=== PATIENT | male | born 2000 | race Caucasian/White ===

== ENCOUNTER 2020-12-05 17:02 | Observation (INO) ==
[2020-12-05 17:49] LABS: Basophils % 0.4 %; Eosinophils # 0.2 K/mcL (0.0-0.6); Eosinophils % 1.7 %; Hematocrit 45.4 % (37.5-50.1); Hemoglobin 15.6 g/dL (12.9-16.9); Immature Granulocytes % 0.3 % (0-4); Lymphocytes # 2.1 K/mcL (0.6-4.6); Lymphocytes % 23.3 %; Mean Corpuscular HGB Conc 34.4 g/dL (31.6-35.5); Mean Corpuscular Hemoglobin 30.6 pg (28.0-33.3); Mean Platelet Volume 10.3 fL (9.4-12.4); Monocytes # 0.7 K/mcL (0.0-1.3); Monocytes % 7.6 %; Platelet Count 306 K/mcL (140-400); Red Cell Distribution Width 12.4 % (11.5-14.5); Segmented Neutrophils % 66.7 %; White Blood Count 9.1 K/mcL (4.3-11.1)
[2020-12-05 18:10] LABS: Alanine Aminotransferase 11 Units/L (7-52); Albumin 4.6 g/dL (3.5-5.7); Albumin/Globulin Ratio 1.8 (1.1-2.2); Alkaline Phosphatase 64 Units/L (34-104); Aspartate Amino Transferase 14 Units/L (13-39); BUN/Creatinine Ratio 12 (6-26); Bilirubin,Direct 0.1 mg/dL (0.0-0.2); Bilirubin,Indirect 0.6 mg/dL (0.0-1.0); Bilirubin,Total 0.7 mg/dL (0.3-1.0); Blood Urea Nitrogen 12 mg/dL (6-20); Calcium 9.4 mg/dL (8.6-10.3); Carbon Dioxide 23 mEq/L (23-29); Chloride 107 mEq/L (98-107); Ethanol < 10 mg/dL (Less than 10); Globulin 2.6 g/dL (2.4-3.5); Glucose 97 mg/dL (70-105); Osmolality,Calculated 290 (280-300); Potassium 3.6 mEq/L (3.5-5.1); Sodium 140 mEq/L (136-145); Total Protein 7.2 g/dL (6.4-8.9); Troponin I < 0.03 ng/mL (< 0.04); eGFR For African Americans > 60 (> 60); eGFR For Non-African Americans > 60 (> 60)
[2020-12-05 18:35] LABS: Amorphous Sediment,Urine Few per hpf (None-Few); Bilirubin,Urine Negative (Negative); Blood,Urine Negative (Negative); Clarity,Urine Ex.Turbid (Clear); Color,Urine Yellow (Yellow); Glucose,Urine (UA) Normal (Normal); Ketones,Urine 40 mg/dL (Negative); Leukocyte Esterase,Urine Negative (Negative); Nitrite,Urine Negative (Negative); PH,Urine 7.5 pH Units (5.0-8.0); Protein,Urine 50 mg/dL (Neg-Trace); Specific Gravity,Urine 1.023 (1.010-1.025); Urobilinogen,Urine Normal (Normal)
[2020-12-05 19:01] LABS: Amphetamine Screen,Urine Negative ng/mL (Cutoff=1000); Barbiturate Screen,Urine Negative ng/mL (Cutoff=200); Benzodiazepines Screen,Urine Negative ng/mL (Cutoff=200); Cannabinoid Screen,Urine Positive ng/mL (Cutoff = 50); Cocaine Screen,Urine Negative ng/mL (Cutoff= 300); Opiate Screen,Urine Negative ng/mL (Cutoff=300); Phencyclidine Screen,Urine Negative ng/mL (Cutoff=25)
[2020-12-05] MEDS ORDERED: Naloxone 0.4 MG/ML INJ IVP PRN (23:12)
[2020-12-05] MEDS ORDERED: Acetaminophen 325 MG TABLET PO PRN (23:12)
[2020-12-05] MEDS ORDERED: Ondansetron ODT 4 MG TAB.RAPDIS SL PRN (23:12)
[2020-12-06] MEDS ORDERED: Gadolinium Contrast Agent (WT Based) IV PRN (01:26)
[2020-12-06 02:45] LABS: Hematocrit 43.4 % (37.5-50.1); Hemoglobin 14.9 g/dL (12.9-16.9); Mean Corpuscular HGB Conc 34.3 g/dL (31.6-35.5); Mean Corpuscular Hemoglobin 30.8 pg (28.0-33.3); Mean Corpuscular Volume 89.7 fL (83.0-100.0); Mean Platelet Volume 10.4 fL (9.4-12.4); Platelet Count 274 K/mcL (140-400); Red Blood Count 4.84 M/mcL (4.19-5.50); Red Cell Distribution Width 12.4 % (11.5-14.5); White Blood Count 8.8 K/mcL (4.3-11.1)
[2020-12-06 03:05] LABS: BUN/Creatinine Ratio 15 (6-26); Blood Urea Nitrogen 13 mg/dL (6-20); Carbon Dioxide 20 mEq/L (23-29); Chloride 107 mEq/L (98-107); Glucose 94 mg/dL (70-105); Magnesium 2.1 mg/dL (1.6-2.6); Osmolality,Calculated 286 (280-300); Phosphorous 3.9 mg/dL (2.7-4.5); Potassium 3.4 mEq/L (3.5-5.1); Sodium 138 mEq/L (136-145); eGFR For African Americans > 60 (> 60); eGFR For Non-African Americans > 60 (> 60)
[2020-12-06] MEDS: 0.9 % Sodium Chloride 1,000 ML IVC SCH ×2 (03:37→12:26)
[2020-12-06 06:57] VITALS: BP 121/70
[2020-12-11 01:19] LABS: Urine Collection Volume NOT PROVIDED mL
== END 2020-12-06 15:40 | disposition home or self-care (01) ==
LOC: 3ANU 17:02 → EMEROOARM 17:02 → SUATTDRO 21:18 → 3ANU 22:00
PROVIDERS: ADMIT Internal Medicine; ATTEND Internal Medicine